=== PATIENT | female | born 1990 ===

== ENCOUNTER 2025-09-23 06:42 | Inpatient (IN) | payer SELFPAY ==
[~2025-09-23] VITALS: Ht 152.4 cm; Wt 63.5 kg
[2025-09-23] MEDS: LORazepam 2 MG/ML VIAL IM ONE (08:17)
[2025-09-23 08:58] LABS: COVID AG,FIA SOURCE NASAL SWAB
[2025-09-23 09:36] LABS: PLATELET COUNT (AUTO) 329 K/uL (150-450); RED BLOOD CELL COUNT(AUTO) 3.91 MIL/uL (4.00-5.20); RED CELL DISTRIBUTION WIDTH 12.6 % (11.5-14.5); WHITE BLOOD COUNT (AUTO) 10.0 K/uL (4.5-11.0)
[2025-09-23 09:45] LABS: CALCIUM, TOTAL 8.5 mg/dL (8.8-10.5); CREATININE 0.92 mg/dL (0.60-1.30); GLOMERULAR FILTR. RATE CALC > 60 mL/min (>60); GLUCOSE,RANDOM 90 mg/dL (70-110); SODIUM SERUM 138 mmol/L (136-145); UREA NITROGEN, BLOOD 19 mg/dL (7-18)
[2025-09-23 09:48] LABS: SARS-COV2 (COVID) ANTIGEN,FIA Negative (Negative)
[2025-09-23 10:52] VITALS: O2SAT 100
[2025-09-23] MEDS ORDERED: ZOLPIDEM TARTRATE 10 MG TABLET PO PRN (12:00)
[2025-09-23] MEDS ORDERED: OLANZapine 5 MG RAPDIS TABLET PO PRN ×2 (12:00→14:15)
[2025-09-23] MEDS ORDERED: LOPERAMIDE HCL 2 MG CAPSULE PO PRN (12:15)
[2025-09-23] MEDS ORDERED: PROMETHAZINE HCL 25 MG TABLET PO PRN (12:15)
[2025-09-23] MEDS ORDERED: ACETAMINOPHEN 325 MG TABLET PO PRN (12:15)
[2025-09-23] MEDS ORDERED: MAG HYDROX/ALUMINUM HYD/SIMETH ES 30 ML SUSPENSION UDCUP PO PRN (12:15)
[2025-09-23] MEDS ORDERED: MAGNESIUM HYDROXIDE SUSPENSION 30 ML UDCUP PO PRN (12:15)
[2025-09-23] MEDS ORDERED: GuaiFENesin/D-METHORPHAN [SUGAR-FREE] 200-20MG/10 ML SYRUP UDCUP PO PRN (12:15)
[2025-09-23] MEDS: THIAMINE 100 MG TABLET PO SCH (17:00)
[2025-09-23] MEDS ORDERED: LORazepam 2 MG/ML VIAL IM ONE (17:30)
[2025-09-23 18:34] VITALS: BP 111/80; PULSE 74; RESP 16; TEMP 97; O2SAT 100
[2025-09-23] MEDS: DIVALPROEX SODIUM 500 MG ER TABLET PO SCH (20:09)
[2025-09-23] MEDS: OLANZapine 5 MG RAPDIS TABLET PO SCH (20:09)
[2025-09-24] MEDS: FOLIC ACID 1 MG TABLET PO SCH (08:07)
[2025-09-24] MEDS: MULTIVITAMINS WITH MINERALS, THERAPEUTIC TABLET PO SCH (08:07)
[2025-09-24 08:10] VITALS: BP 108/72; PULSE 73; RESP 16; TEMP 98.2; O2SAT 98
[2025-09-24 09:16] LABS: PLATELET COUNT (AUTO) 317 K/uL (150-450); RED BLOOD CELL COUNT(AUTO) 4.26 MIL/uL (4.00-5.20); RED CELL DISTRIBUTION WIDTH 12.4 % (11.5-14.5); WHITE BLOOD COUNT (AUTO) 8.2 K/uL (4.5-11.0)
[2025-09-24 10:02] LABS: ASPARTATE AMINOTRANSFERASE 54 U/L (15-37); CALCIUM, TOTAL 8.9 mg/dL (8.8-10.5); CREATININE 0.78 mg/dL (0.60-1.30); GLOMERULAR FILTR. RATE CALC > 60 mL/min (>60); GLUCOSE,RANDOM 87 mg/dL (70-110); SODIUM SERUM 138 mmol/L (136-145); TOTAL PROTEIN, SERUM 7.3 g/dL (6.4-8.2); UREA NITROGEN, BLOOD 15 mg/dL (7-18)
[2025-09-24] MEDS: TUBERCULIN, PURIFIED PROTEIN DERIVATIVE 5 TU/0.1 ML SYRINGE ID ONE (10:03)
[2025-09-24] MEDS ORDERED: LORazepam 2 MG/ML VIAL ONE (12:01)
[2025-09-24] MEDS: LORazepam 2 MG/ML VIAL IM ONE ×2 (12:26→18:12)
[2025-09-24 20:38] VITALS: BP 110/75; PULSE 75; RESP 17; TEMP 97; O2SAT 98
[2025-09-25 08:04] VITALS: BP 129/82; PULSE 100; RESP 16; TEMP 98.4; O2SAT 100
[2025-09-25] MEDS ORDERED: OLAN5TAB94 PO (15:55)
[2025-09-25] MEDS ORDERED: DIVA-153 PO (15:55)
[2025-09-25] MEDS ORDERED: MELA5TAB40 PO (15:55)
[2025-09-25] MEDS ORDERED: NALT50TA6 PO (15:55)
[2025-09-25 20:41] VITALS: BP 124/81; PULSE 99; RESP 18; TEMP 97.3; O2SAT 100
== END 2025-09-26 06:44 | disposition home or self-care (01) | DRG 885 ==
LOC: EMS 06:42 → B3A 14:40
PROVIDERS: ADMIT Psychiatry & Neurology Psychiatry; ATTEND Psychiatry & Neurology Psychiatry
PROC: GZ58ZZZ Individual Psychotherapy, Cognitive-Behavioral (ICD-10-PCS; principal; 2025-09-23)
PROC: GZ56ZZZ Individual Psychotherapy, Supportive (ICD-10-PCS; 2025-09-23)
PROC: GZHZZZZ Group Psychotherapy (ICD-10-PCS; 2025-09-23)
DX: F25.9 Schizoaffective disorder, unspecified (principal); Z20.822 Contact with and (suspected) exposure to COVID-19; Z59.00 Homelessness unspecified; Z55.9 Problems related to education and literacy, unspecified; Z63.9 Problem related to primary support group, unspecified; Z65.3 Problems related to other legal circumstances
CPT/HCPCS: 80048; 80053; 84702; 84703; 85025; 86592; 93005; G0480; J1200; J1630; J2060